=== PATIENT | female | born 1985 | race Caucasian/White ===

== ENCOUNTER 2023-11-14 15:21 | Emergency (ER) | payer OTHER, SELFPAY ==
[2023-11-14] VITALS (8 sets, daily range): BP systolic 114–125; BP diastolic 70–80; PULSE 72–82; RESP 16–18; TEMP 36.6; O2SAT 99–100
[2023-11-14 16:15] LABS: Basophils Absolute Auto 0.1 K/mm3 (0.0-0.1); Basophils Percent Auto 0.6 % (0.2-1.2); Eosinophils Percent Auto 0.2 % (0-4.4); Hematocrit 34.4 % (37.0-47.0); Hemoglobin 11.3 g/dL (12.0-15.0); Immature Granulocyte Absolute 0.03 K/mm3 (0.00-0.031); Immature Granulocyte Percent A 0.3 % (0-0.5); Lymphocytes Absolute Auto 2.59 K/mm3 (0.9-3.2); Lymphocytes Percent Auto 27.4 % (18.3-44.2); Mean Corpuscular HGB Conc 32.8 g/dl (32-36); Mean Corpuscular Hemoglobin 29.9 pg (26-34); Mean Platelet Volume 9.2 fl (7.4-10.4); Monocytes Absolute Auto 0.6 K/mm3 (0.1-0.6); Monocytes Percent Auto 6.1 % (2.6-8.5); Neutrophils Absolute Auto 6.2 K/mm3 (1.3-6.7); Neutrophils Percent Auto 65.4 % (45.5-73.1); Platelet Count Result 336 k/mm3 (150-375); Red Blood Count 3.78 M/mm3 (4.2-5.4); Red Cell Distribution Width 13.8 % (11.5-14.5); White Blood Count 9.4 K/mm3 (4.5-10.0)
[2023-11-14 16:25] LABS: INR 1.1; Prothrombin Time 14.7 Seconds (11.1-14.7)
[2023-11-14 16:26] LABS: Partial Thromboplastin Time 26.4 Seconds (22.3-36.8)
[2023-11-14 16:34] LABS: Alanine Aminotransferase 30 U/L (6-35); Albumin Level 4.3 g/dL (3.5-5.1); Alkaline Phosphatase 51 U/L (38-126); Anion Gap 9 mmol/L (4-12); Aspartate Amino Transferase 31 U/L (14-36); Bilirubin,Total 0.3 mg/dL (0.2-1.3); Blood Urea Nitrogen 18 mg/dL (7-17); Calcium 8.6 mg/dL (8.4-10.2); Carbon Dioxide 25 mmol/L (22-30); Chloride 103 mmol/L (98-107); Estimated CRCL calculation 84 ml/min; Estimated Glomerular Filt Rate > 60; Glucose 85 mg/dL (65-110); Potassium 3.5 mmol/L (3.4-5.0); Sodium 137 mmol/L (137-145)
[2023-11-14 16:49] LABS: Beta HCG Quantitative < 2.39 mIU/ML
--- NOTE | 2023-11-14 18:38 | ED.FEMALEGU ---
HPI - Female Genitourinary General Chief complaint: Vaginal Bleeding Stated complaint: heavy vaginal bleeding Time Seen by Provider: 11/14/23 17:50 Source: patient Mode of arrival: ambulatory Limitations: no limitations History of Present Illness HPI Narrative: This is a 38-year-old female that presents to the emergency department for abnormal uterine bleeding. Reports she has a Nexplanon implant. She usually has pretty light menstrual cycles. She has been bleeding since September. Over the last 3 days her bleeding has become heavy with large blood clots. She was evaluated another ER last night and was able to be discharged. She went to see her utility helicopter repairer today who sent her to the ER for further evaluation as she has continued to have heavy bleeding. Related Data Allergies Allergy/AdvReac Type Severity Reaction Status Date / Time No Known Allergies Allergy Verified 11/14/23 15:26 Review of Systems Review of Systems: CONSTITUTIONAL: Denies fever GASTROINTESTINAL: Reports pelvic cramping. Denies vomiting All systems reviewed & are unremarkable except as noted in HPI and below PMFSH Past Medical History Medical History (Updated 11/14/23 @ 18:55 by Isabel Mansfield PA-C) No active medical problems Social History Social History (Updated 11/14/23 @ 18:40 by Isabel Mansfield PA-C) Smoking status: Never smoker Exam Narrative: GENERAL: Well-appearing, well-nourished, and in no acute distress. HEAD: Normocephalic, atraumatic. EYES: EOMI. CHEST: Clear to auscultation. No respiratory distress. No wheezes rales or rhonchi HEART: Regular rate and rhythm. No murmur heard. Normal peripheral pulses. ABDOMEN: Soft, nontender, nondistended, normal active bowel sounds. EXTREMITIES: Normal range of motion. No edema. SKIN: Warm, dry, no rash. NEURO: No focal deficits. Alert and oriented x3. PSYCH: Normal mood and affect PELVIC: normal external genitalia. Moderate sized blood clot in the vaginal vault, otherwise small amount of bleeding Course Course Emergency Course: patient updated on workup and agrees with plan of care Consultations Consultation #1: Spoke with Dr. Watts about patient and workup. Recommends starting patient on estradiol 2 mg daily for 1 week. Continue to follow up outpatient Date: 11/14/23 Vital Signs Vital signs: Vital Signs Temperature 97.8 F 11/14/23 15:47 Pulse Rate 79 11/14/23 15:47 Respiratory Rate 18 11/14/23 15:47 Blood Pressure 125/75 11/14/23 15:47 Pulse Oximetry 99 11/14/23 15:47 Temperature 97.8 F 11/14/23 15:47 Pulse Rate 72 11/14/23 17:46 Respiratory Rate 16 11/14/23 17:46 Blood Pressure 115/74 11/14/23 18:16 Pulse Oximetry 99 11/14/23 18:16 MDM - Female Genitourinary MDM Narrative Medical decision making narrative: patient presents to the emergency department for abnormal uterine bleeding. Reports she has had heavy vaginal bleeding over the last 3 days. Was evaluated at another ER last night and discharge. she followed up with her utility helicopter repairer today who prompted her to be seen in the ER. No concerning amount of bleeding on exam today. Her blood pressure is stable. Heart rate is normal. Hemoglobin is 11.3. Spoke with Dr. Watts about patient and workup. Recommends starting patient on estradiol 2 mg daily for 1 week. Continue to follow up outpatient. She was given warnings to return to the ER Differential Diagnosis Differential diagnosis: Likely dysmenorrhea and other ( fibroid, abnormal uterine bleeding) Lab Data Attestation: I reviewed the patient's lab results. 11/14/23 16:05 11/14/23 16:05 Labs: Lab Results 11/14/23 Range/Units 16:05 WBC 9.4 (4.5-10.0) K/mm3 RBC 3.78 L (4.2-5.4) M/mm3 Hgb 11.3 L (12.0-15.0) g/dL Hct 34.4 L (37.0-47.0) % MCV 91.0 (80-100) fl MCH 29.9 (26-34) pg MCHC 32.8 (32-36) g/dl RDW 13.8 (11.5-14.5) % Plt Count 336 (150-3
== END 2023-11-14 19:06 | disposition home or self-care (01) ==
PROVIDERS: Student in an Organized Health Care Education/Training Program; Emergency Provider Physician Assistant; PCP Nurse Practitioner
DX: N93.9 Abnormal uterine and vaginal bleeding, unspecified (principal); Z97.5 Presence of (intrauterine) contraceptive device
CPT/HCPCS: 36415; 80053; 84702; 85025; 85461; 85610; 85730; 86850; 86900; 86901; 99284

== ENCOUNTER 2023-11-24 01:07 | Day surgery (SDC) | payer OTHER, SELFPAY ==
[2023-11-19 17:53] VITALS: BMI 24.1
--- NOTE | 2023-11-19 18:24 | PC.NURSE ---
Report to the Outpatient Waiting Room, entrance under the green pavilion located off [facility], at 1230 on 11-24-23. Planned Procedure Time: 1430. Time changes happen often and if your time is changed the preop area will call you the afternoon before. - You and your visitor will be asked to self-screen and do not enter if you have any COVID symptoms. - A mask is optional within the hospital at this time. Patients may have clear liquids (water, carbonated beverages, clear teas, apple juice) until 3 hours prior to surgery with a maximum of 20 ounces. 1130 - No food from midnight until time of surgery - Infants may have breast milk until 4 hours before surgery, formula 6 hours prior to surgery. - Children will be allowed to drink immediately following surgery. If applicable, please bring a bottle or sippy cup to assist with drinking. Juice, water, soda, and popsicles are readily available. For infants on formula, please bring formula the day of surgery. Pacifiers are allowed. Take the following medications with a SIP of water the morning of surgery: None DO NOT STOP ANY OF YOUR OTHER PRESCRIPTION MEDICATIONS PRIOR TO SURGERY ?EXCEPT THE FOLLOWING Medications to discontinue per physician: vitamins and supplements Date to take last dose: 11-21-23 Please no make-up, nail armenian, hairspray, perfume, deodorant, or body powder the day of surgery. No jewelry (including any body piercings) or valuables the day of surgery, leave them at home. Please take a shower or bath the night before, or the morning of, surgery with an antibacterial soap. Wear comfortable, loose fitting clothing. Children are encouraged to wear pajamas. - Jewelry must be removed prior to entering the operating room. Rings and piercings that are not removed may be cut off. - The hospital will not accept responsibility for valuables. - Please leave all valuables, including medications, at home the day of surgery. If you are going home after surgery, a licensed regional owner operator truck driver must drive you home. - NO public transportation without another adult if you receive anesthesia. - We recommend that an adult stay with you for 24 hours following discharge. - We also recommend that you do not drive, make important decision, drink alcoholic beverages, or take any drugs that were not prescribed by your health care provider for at least 24 hours after your discharge time. For Pediatric surgeries, we recommend two adults accompany the child home. Follow any additional instructions given to you from your surgeon. If you or anyone in your household have experienced Covid symptoms in the past week, please notify your surgeon or the nurse liaison at the phone number below for possible testing. Telephone instructions given to Beatriz Denson and asked if any additional questions and then verbalized understanding. Patient advised to call surgeon office or pre surgery nurse liaison [phone] if any additional questions.
--- NOTE | 2023-11-24 07:24 | WPDHPUPDATE1 ---
History and Physical Update Update Date/Time: 11/24/23 07:24 History and Physical has been reviewed, including an updated exam of the patient. There are NO changes in the patient's condition. Risks, benefits, and alternatives have been discussed and questions answered. Patient agrees to proceed with procedure.
--- NOTE | 2023-11-24 07:24 | PM.HPGS ---
History of Present Illness History of Present Illness Consent: Risks, benefits, and alternatives have been discussed and questions answered. Patient agrees to proceed with procedure. Chief complaint: Menorrhagia Narrative: Beatriz Denson is a 38 year old female with menorrhagia and anemia. Pelvic ultrasound shows a possible 1cm fibroid. Hemoglobin is 9.5. It was recommended to undergo further workup with D&C hysteroscopy. Risks of infection, bleeding, perforation, and fluid imbalance are reviewed. Possible pathology was discussed. The patient voices understanding and agrees to proceed. Review of Systems Review of Systems: not repeated day of surgery; patient states no changes in status [facility] Past Medical History Medical History (Updated 11/24/23 @ 07:27 by Janae Hewitt MD) History of 2003 at 8 weeks 2006 at 23 weeks with a 2 day procedure History of depression Surgical History Surgical History (Updated 11/24/23 @ 07:26 by Janae Hewitt MD) History of loop electrical excision procedure (LEEP) 2008 Social History Social History (Updated 11/14/23 @ 18:40 by Isabel Mansfield PA-C) Smoking status: Never smoker Second hand tobacco smoke exposure: No Alcohol intake: former Drinks per week: 21 Alcohol use details: 2022 malt liquor ([employer] hard lemonade) Substance use: current Substance use type: marijuana Other substance usage details: every other day Living arrangements: with family Spiritual care concerns: No Meds Home Medications and Allergies Home Medications Medication Instructions Recorded Confirmed Type ferrous sulfate 27 mg iron tablet 54 mg PO DAILY 11/19/23 11/19/23 History multivitamin with minerals-folic 2 tablet PO DAILY 11/19/23 11/19/23 History acid 200 mcg chewable tablet (Women's Multivitamin Gummies) tranexamic acid 650 mg tablet 650 mg PO TID 11/19/23 11/19/23 History Allergies Allergy/AdvReac Type Severity Reaction Status Date / Time No Known Allergies Allergy Verified 11/19/23 17:45 Exam Const: General: healthy appearing and alert Orientation/consciousness: patient oriented x3 Resp: Effort & Inspection: normal respiratory effort : External Female Exam: normal external appearance Speculum Exam - Vagina: normal appearance of the vagina and normal vaginal discharge Speculum Exam - Cervix: normal appearance of the cervix Bimanual exam- vagina & uterus: uterine size normal and consistency normal Bimanual Exam- Adnexa, other: normal adnexae and No adnexal tenderness Neuro: General: patient oriented x3 Assessment and Plan Assessment and plan (1) Menorrhagia: Code(s): N92.0 - Excessive and frequent menstruation with regular cycle Status: Acute Assessment and Plan: plan to proceed with D&C hysteroscopy
[2023-11-24 12:59] VITALS: BP 118/69; PULSE 76; RESP 20; TEMP 36.5; O2SAT 100
--- NOTE | 2023-11-24 13:02 | WPDANESEPPF ---
Anes - Initial Pre Proc Eval Procedure: Operation Date: 11/24/23 14:30 Proposed Procedures p Hysteroscopy Dilation and Curettage - Janae Hewitt MD <Teto Coppola MD - Last Filed: 11/24/23 13:04> Date/Time: 11/24/23 13:02 <Teto Coppola MD - Last Filed: 11/24/23 13:04> Surgeon: Janae Hewitt MD <Teto Coppola MD - Last Filed: 11/24/23 13:04> Pre Op Diagnosis: Menorrhagia <Teto Coppola MD - Last Filed: 11/24/23 13:04> Patient Data Age: 38 Gender: F Height: 1.65 m Weight: 65.77 kg <Teto Coppola MD - Last Filed: 11/24/23 13:04> Allergies Allergy/AdvReac Type Severity Reaction Status Date / Time No Known Allergies Allergy Verified 11/24/23 12:54 <Teto Coppola MD - Last Filed: 11/24/23 13:04> Home Medications Medication Instructions Recorded Confirmed Type ferrous sulfate 27 mg iron tablet 54 mg PO DAILY 11/19/23 11/24/23 History multivitamin with minerals-folic 2 tablet PO DAILY 11/19/23 11/24/23 History acid 200 mcg chewable tablet (Women's Multivitamin Gummies) tranexamic acid 650 mg tablet 650 mg PO TID 11/19/23 11/24/23 History <Teto Coppola MD - Last Filed: 11/24/23 13:04> Patient hx anesthesia problems: none <Ladarius Reese MD - Last Filed: 11/24/23 13:58> Family hx anesthesia problems: none <Ladarius Reese MD - Last Filed: 11/24/23 13:58> Results Review: All pre-operative results and documents have been reviewed as part of the pre-operative evaluation. <Teto Coppola MD - Last Filed: 11/24/23 13:04> PMFSH Past Medical History Medical History: Medical History History of 2003 at 8 weeks 2006 at 23 weeks with a 2 day procedure History of depression <Teto Coppola MD - Last Filed: 11/24/23 13:04> Surgical History Surgical History: Surgical History History of loop electrical excision procedure (LEEP) 2008 <Teto Coppola MD - Last Filed: 11/24/23 13:04> Social History Social History: Social History (Updated 11/14/23 @ 18:40 by Isabel Mansfield PA-C) Smoking status: Never smoker Second hand tobacco smoke exposure: No Alcohol intake: former Drinks per week: 21 Alcohol use details: 2022 malt liquor ([employer] hard lemonade) Substance use: current Substance use type: marijuana Other substance usage details: every other day Living arrangements: with family Spiritual care concerns: No <Teto Coppola MD - Last Filed: 11/24/23 13:04> Anes - Eval Final PreProcedure Day of Procedure 11/24/23 13:02 <Teto Coppola MD - Last Filed: 11/24/23 13:04> Patient weight: normal <Teto Coppola MD - Last Filed: 11/24/23 13:04> Heart: regular rate and rhythm <Teto Coppola MD - Last Filed: 11/24/23 13:04> Lungs: clear to auscultation <Teto Coppola MD - Last Filed: 11/24/23 13:04> Airway: Mallampati scale class II <Teto Coppola MD - Last Filed: 11/24/23 13:04> Neurological: alert and oriented <Teto Coppola MD - Last Filed: 11/24/23 13:04> Last oral intake: >/= 8 hours <Teto Coppola MD - Last Filed: 11/24/23 13:04> ASA classification: II <Teto Coppola MD - Last Filed: 11/24/23 13:04> Emergent: no <Teto Coppola MD - Last Filed: 11/24/23 13:04> Anesthetic plan: proceed <Teto Coppola MD - Last Filed: 11/24/23 13:04> Anesthesia type and monitoring: general GIVS and standard monitoring <Teto Coppola MD - Last Filed: 11/24/23 13:04> Results Review: All pre-operative results and documents have been reviewed as part of the pre-operative evaluation. <Teto Coppola MD - Last Filed: 11/24/23 13:04> Informed Consent: The patient's anesthetic plan and its attendant risks and benefit
[2023-11-24] MEDS: LACTATED RINGERS 1,000 ML 30 ML IV CONT ×2 (13:25→14:37)
[2023-11-24 13:37] LABS: BEDSIDEPREGUCG Negative
[2023-11-24] MEDS: ACETAMINOPHEN 500 MG TABLET 1000 MG PO (13:42)
--- NOTE | 2023-11-24 14:35 | P.OP_ITS ---
Procedure Note - Detailed Date of Procedure 11/24/23 Pre-op Diagnosis Menorrhagia; fibroid Post-op Diagnosis Same Procedure Performed D&C hysteroscopy with hysteroscopic myomectomy Surgeon Janae Hewitt MD Anesthesia MAC Findings uterus sounds to 8cm and has a fibroid on the right posterior wall approx imately 1/3 size the cavity Description of Procedure The patient is taken to the operating room and placed under anesthesia in the dorsal lithotomy position. She was prepped and draped in the usual sterile fashion. The bivalve speculum was placed in the vagina and the cervix grasped on the anterior lip with a tenaculum. The uterus is sounded to 8cm. The diagnostic hysteroscope was placed and with the fibroid noted the Flex Aveta resection device is placed. Under direct visualization the fibroid was removed in its entirety until no further fibroid is bulging into the cavity. The hysteroscope was then removed and the sharp OO curette used to curette the endometrium until a good uterine cry was noted in all areas. All instruments are removed. Sponge, needle, and instrument counts are correct per the OR staff. The patient was awakened from anesthesia and taken to recovery in stable condition. Estimated Blood Loss 5 Drains No Packing No Pathology Yes ( endometrial shavings and curettings) Complications No immediate complications Condition Stable Disposition PACU
[2023-11-24 14:37] VITALS: BP 107/71; PULSE 69; RESP 16; O2SAT 100
[2023-11-24 15:05] VITALS: BP 113/70; PULSE 65; RESP 16
[2023-11-24] MEDS: oxyCODONE HCL (*CRX) 5 MG TAB IR PO (15:10)
[2023-11-24 15:35] VITALS: BP 98/69; PULSE 60; RESP 16
[2023-11-24 15:55] VITALS: BP 104/65; PULSE 74; RESP 16
== END 2023-11-24 16:05 | disposition home or self-care (01) ==
PROVIDERS: PCP Internal Medicine; Visit Provider Obstetrics & Gynecology Gynecology
PROC: 0U5B8ZZ Destruction of Endometrium, Via Natural or Artificial Opening Endoscopic (ICD-10-PCS; CPT 58563; principal; 2023-11-24 14:30)
DX: D25.9 Leiomyoma of uterus, unspecified (principal); D64.9 Anemia, unspecified; F32.A Depression, unspecified; F12.90 Cannabis use, unspecified, uncomplicated; Z98.890 Other specified postprocedural states
CPT/HCPCS: 58561; 88305; A9270; J1885; J2250; J2405; J7120